=== PATIENT | male | born 1935 | race Caucasian/White ===

== ENCOUNTER → 2017-06-08 | Outpatient (CLI) | payer MEDICARE, MEDICAID ==
[~2017-06-08] MED LIST: BENA1TAB18 PO; BRIM10DR2 OP; IOPAMIDOL 61% 300/15 ML VIAL IT ONE; LIDOCAINE HCL 2% JELLY 5ML ONE; METF500T4 PO
== END | disposition home or self-care (01) ==
LOC: RAD 09:46
PROVIDERS: ATTEND Urology
DX: N35.8 Other urethral stricture (principal); N36.1 Urethral diverticulum
CPT/HCPCS: 51610; 74450; Q9967

== ENCOUNTER 2018-01-02 09:20 | Inpatient (IN) | payer MEDICARE, MEDICAID ==
[~2018-01-02] VITALS: Ht 165.1 cm; Wt 77.4 kg
[2018-01-02 08:35] VITALS: BP 154/69
[~2018-01-02 09:20] MED LIST changes: -IOPAMIDOL 61% 300/15 ML VIAL IT ONE; -LIDOCAINE HCL 2% JELLY 5ML ONE; +METF-414 PO; -METF500T4 PO
[2018-01-02] MEDS ORDERED: DIPHENHYDRAMINE 50MG/ML VIAL IV PRN (11:00)
[2018-01-02] MEDS ORDERED: ACETAMINOPHEN 325MG TABLET PO PRN (11:00)
[2018-01-02] MEDS ORDERED: MAGNESIUM/ALUMINUM HYDROXIDE/SIMETHICONE 30ML UDC PO PRN (11:00)
[2018-01-02] MEDS ORDERED: LORAZEPAM 0.5MG TABLET PO PRN (11:00)
[2018-01-02] MEDS ORDERED: CLONIDINE 0.1MG TABLET PO PRN (11:00)
[2018-01-02] MEDS ORDERED: IPRATROPIUM/ALBUTEROL 0.5-3(2.5)MG/3ML NEB INH PRN (11:00)
[2018-01-02] MEDS ORDERED: HYDROCODONE/ACETAMINOPHEN 5/325MG TABLET PO PRN (11:00)
[2018-01-02] MEDS ORDERED: ONDANSETRON HCL 4MG/2ML INJ IV PRN (11:00)
[2018-01-02 11:29] VITALS: BP 154/79
[2018-01-02 12:00] VITALS: BP 158/74
[2018-01-02] MEDS ORDERED: INFLUENZA VIRUS VACCINE(AFLURIA) 0.5ML SYR IM ONE (13:45)
[2018-01-02] MEDS: LEVOFLOXACIN 500MG TABLET PO SCH (14:00)
[2018-01-02] MEDS: SODIUM CHLORIDE 0.9% 1,000 ML IV SCH (14:11)
[2018-01-02] MEDS: PANTOPRAZOLE SODIUM 40 MG/VIAL IV SCH (14:11)
[2018-01-02] MEDS: ENOXAPARIN 40MG/0.4ML SYR SUBCUT SCH (14:12)
[2018-01-02] MEDS: AMIODARONE HCL 200 MG TABLET PO SCH ×2 (14:13→17:00)
[2018-01-02] MEDS: BENAZEPRIL 10MG TABLET PO SCH (14:13)
[2018-01-02] MEDS: DILTIAZEM HCL 60MG TABLET PO SCH ×2 (14:14→20:28)
[2018-01-02] MEDS: METRONIDAZOLE 500MG TABLET PO SCH ×2 (14:17→20:28)
[2018-01-02 16:00] VITALS: BP 166/51
[2018-01-02 16:20] LABS: INR 1.1; PROTHROMBIN TIME 11.3 sec (9.1-11.1)
[2018-01-02 16:26] LABS: ETHANOL BLOOD < 10 mg/dL
[2018-01-02] MEDS: BLOOD SUGAR DIAGNOSTIC STRIP TEST SCH ×2 (17:40→21:00)
[2018-01-02] MEDS ORDERED: DEXTROSE 50% WATER 50ML SYRINGE IV PRN (17:45)
[2018-01-02] MEDS: INSULIN LISPRO 100 UNITS/ML SUBCUT SCH (18:10)
[2018-01-02 23:38] VITALS: BP 110/65
[2018-01-03] VITALS: BP 115/65
[2018-01-03] MEDS: SODIUM CHLORIDE 0.9% 1,000 ML IV SCH ×2 (03:08→21:32)
[2018-01-03 04:00] VITALS: BP 118/65
[2018-01-03] MEDS: DILTIAZEM HCL 60MG TABLET PO SCH ×3 (05:29→21:30)
[2018-01-03 06:15] LABS: BASOPHILS % 0.8 % (0.0-2.0); EOSINOPHILS % 1.8 % (0.0-5.0); HEMATOCRIT. 35.5 % (42.0-52.0); HEMOGLOBIN. 12.3 g/dL (14.0-18.0); LYMPHOCYTES % 18.9 % (20.0-50.0); MEAN CORPUSCULAR HEMOGLOBIN 31.8 pg (28.0-32.0); MEAN CORPUSCULAR VOLUME 92.1 fL (80.0-94.0); MONOCYTES % 12.1 % (2.0-8.0); NEUTROPHILS % 66.4 % (40.0-76.0); PLATELET 508 x1000/uL (130-400); RED BLOOD CELL COUNT 3.85 mill/uL (4.7-6.1); RED CELL DISTRIBUTION WIDTH 13.5 % (11.6-14.6)
[2018-01-03 06:24] LABS: CHLORIDE 101 mEq/L (98-107)
[2018-01-03 06:35] LABS: T4 FREE 1.23 ng/dL (0.76-1.46)
[2018-01-03] MEDS: BLOOD SUGAR DIAGNOSTIC STRIP TEST SCH ×4 (07:40→21:00)
[2018-01-03 08:00] VITALS: BP 150/72
[2018-01-03] MEDS: BENAZEPRIL 10MG TABLET PO SCH (08:50)
[2018-01-03] MEDS: AMIODARONE HCL 200 MG TABLET PO SCH ×2 (08:50→17:41)
[2018-01-03] MEDS: ENOXAPARIN 40MG/0.4ML SYR SUBCUT SCH (08:50)
[2018-01-03] MEDS: METRONIDAZOLE 500MG TABLET PO SCH ×2 (08:50→21:30)
[2018-01-03] MEDS: PANTOPRAZOLE SODIUM 40 MG/VIAL IV SCH (08:51)
[2018-01-03 11:05] LABS: AMMONIA 53 uMol/L (<32)
[2018-01-03 11:36] LABS: FOLIC ACID (FOLATE) SERUM 17.3 ng/mL (>5.38)
[2018-01-03] MEDS: LEVOFLOXACIN 500MG TABLET PO SCH (11:44)
[2018-01-03 12:06] VITALS: BP 121/52
[2018-01-03 14:29] LABS: CLARITY URINE CLEAR (CLEAR); COLOR URINE YELLOW (YELLOW); KETONES URINE NEGATIVE (NEGATIVE); LEUKOCYTE ESTERASE URINE TRACE (NEGATIVE); NITRITE URINE NEGATIVE (NEGATIVE); OCCULT BLOOD URINE NEGATIVE (NEGATIVE); PROTEIN URINE NEGATIVE (NEGATIVE); SPECIFIC GRAVITY URINE 1.009 (1.005-1.030); UROBILINOGEN URINE 0.2 E.U./dL (0.2-1.0)
[2018-01-03 14:43] LABS: *AMPHETAMINES SCREEN URINE NEGATIVE (NEGATIVE); *BARBITURATES SCREEN URINE NEGATIVE (NEGATIVE); *BENZODIAZEPINES SCREEN URINE NEGATIVE (NEGATIVE); *COCAINE SCREEN URINE NEGATIVE (NEGATIVE); METHADONE URINE SCREEN NEGATIVE (NEGATIVE); OPIATES URINE SCREEN NEGATIVE (NEGATIVE)
[2018-01-03 14:44] LABS: CANNABINOID URINE SCREEN NEGATIVE (NEGATIVE); PHENCYCLIDINE URINE SCREEN NEGATIVE (NEGATIVE)
[2018-01-03 16:00] VITALS: BP 115/32
[2018-01-03] MEDS: INSULIN LISPRO 100 UNITS/ML SUBCUT SCH ×2 (17:42→21:00)
[2018-01-03 20:00] VITALS: BP 139/57
[2018-01-04] VITALS: BP 119/56
[2018-01-04 04:00] VITALS: BP 135/61
[2018-01-04] MEDS: DILTIAZEM HCL 60MG TABLET PO SCH ×3 (06:29→21:19)
[2018-01-04] MEDS: BLOOD SUGAR DIAGNOSTIC STRIP TEST SCH ×2 (07:40→12:40)
[2018-01-04 08:00] VITALS: BP 149/86
[2018-01-04] MEDS: INSULIN LISPRO 100 UNITS/ML SUBCUT SCH ×4 (08:10→21:00)
[2018-01-04 08:27] LABS: HEMATOCRIT 36.5 % (42.0-52.0); HEMOGLOBIN 12.4 g/dL (14.0-18.0); MEAN CORPUSCULAR HEMOGLOBIN 31.2 pg (28.0-32.0); MEAN CORPUSCULAR VOLUME 91.9 fL (80.0-94.0); PLATELET 492 x1000/uL (130-400); RED BLOOD CELL COUNT 3.97 mill/uL (4.7-6.1); RED CELL DISTRIBUTION WIDTH 14.1 % (11.6-14.6)
[2018-01-04] MEDS: METRONIDAZOLE 500MG TABLET PO SCH (08:48)
[2018-01-04] MEDS: FAMOTIDINE 20MG TABLET PO SCH (08:49)
[2018-01-04] MEDS: BENAZEPRIL 10MG TABLET PO SCH (08:49)
[2018-01-04] MEDS: AMIODARONE HCL 200 MG TABLET PO SCH ×2 (08:49→17:55)
[2018-01-04] MEDS: ENOXAPARIN 40MG/0.4ML SYR SUBCUT SCH (08:51)
[2018-01-04 09:18] LABS: CHLORIDE 103 mEq/L (98-107)
[2018-01-04 12:00] VITALS: BP 135/80
[2018-01-04] MEDS: LEVOFLOXACIN 500MG TABLET PO SCH (12:35)
[2018-01-04] MEDS: SODIUM CHLORIDE 0.9% 1,000 ML IV SCH (12:50)
[2018-01-04] MEDS ORDERED: IOHEXOL-300 50 ML BOTTLE IV ONE (14:24)
[2018-01-04 16:00] VITALS: BP 138/60
[2018-01-04] MEDS: LACTULOSE 20G/30ML UDC PO SCH ×2 (17:56→21:15)
[2018-01-04 20:00] VITALS: BP 133/48
[2018-01-05 04:00] VITALS: BP 166/70
[2018-01-05] MEDS: LACTULOSE 20G/30ML UDC PO SCH ×2 (05:18→14:00)
[2018-01-05] MEDS: DILTIAZEM HCL 60MG TABLET PO SCH ×2 (05:18→14:00)
[2018-01-05] MEDS: INSULIN LISPRO 100 UNITS/ML SUBCUT SCH ×2 (05:33→13:10)
[2018-01-05 07:09] LABS: BASOPHILS % 0.6 % (0.0-2.0); EOSINOPHILS % 0.9 % (0.0-5.0); HEMOGLOBIN. 12.6 g/dL (14.0-18.0); LYMPHOCYTES % 14.5 % (20.0-50.0); MEAN CORPUSCULAR HEMOGLOBIN 31.2 pg (28.0-32.0); MEAN PLATELET VOLUME 6.9 fl (7.4-10.4); MONOCYTES % 11.6 % (2.0-8.0); NEUTROPHILS % 72.4 % (40.0-76.0); PLATELET 476 x1000/uL (130-400); RED BLOOD CELL COUNT 4.02 mill/uL (4.7-6.1); RED CELL DISTRIBUTION WIDTH 13.9 % (11.6-14.6)
[2018-01-05 07:26] LABS: AMMONIA 46 uMol/L (<32)
[2018-01-05 07:55] LABS: CHLORIDE 100 mEq/L (98-107)
[2018-01-05] MEDS: FAMOTIDINE 20MG TABLET PO SCH (08:42)
[2018-01-05] MEDS: BENAZEPRIL 10MG TABLET PO SCH (08:42)
[2018-01-05] MEDS: AMIODARONE HCL 200 MG TABLET PO SCH (08:42)
[2018-01-05] MEDS: ENOXAPARIN 40MG/0.4ML SYR SUBCUT SCH (08:43)
[2018-01-05 12:00] VITALS: BP 122/63
[2018-01-05 12:21] VITALS: BP 129/75
[2018-01-28] MEDS ORDERED: lotensin (13:51)
[2018-01-28] MEDS ORDERED: AMI2 PO (13:51)
[2018-01-28] MEDS ORDERED: APIX5TAB PO (13:51)
[2018-01-28] MEDS ORDERED: DILT120T2 PO (13:51)
[2018-01-28] MEDS ORDERED: LOT10 PO (22:37)
[2018-01-30] MEDS ORDERED: ATOR20TA65 MT (21:57)
[2018-01-30] MEDS ORDERED: LEVO50TA8 MT (21:57)
[2018-01-30] MEDS ORDERED: LOSA100T14 MT (21:57)
[2018-01-30] MEDS ORDERED: AMLO-337 MT (21:57)
[2018-01-30] MEDS ORDERED: CHOL200010 MT (21:57)
[2018-01-30] MEDS ORDERED: CARV25TA47 MT (21:59)
[2018-01-30] MEDS ORDERED: CLON0.3T MT (21:59)
[2018-01-30] MEDS ORDERED: CLOP75TA33 MT (22:00)
[2018-01-30] MEDS ORDERED: SUCR500T MT (22:01)
[2018-01-30] MEDS ORDERED: ONDA4TAB50 MT (22:01)
[2018-01-30] MEDS ORDERED: HYDR-4001 MT (22:02)
[2018-01-30] MEDS ORDERED: OMEP40CA34 MT (22:02)
== END 2018-01-05 17:10 | disposition home health service (06) | DRG 64 ==
LOC: 7WST 09:20
PROVIDERS: ADMIT Family Medicine Adult Medicine; ATTEND Specialist
PROC: 0WPGX3Z Removal of Infusion Device from Peritoneal Cavity, External Approach (ICD-10-PCS; principal; 2018-01-04)
DX: I63.9 Cerebral infarction, unspecified (principal); G92 Toxic encephalopathy; K81.0 Acute cholecystitis; I47.1 Supraventricular tachycardia; I82.621 Acute embolism and thrombosis of deep veins of right upper extremity; J98.11 Atelectasis; K82.A1 Gangrene of gallbladder in cholecystitis; D50.9 Iron deficiency anemia, unspecified; E78.00 Pure hypercholesterolemia, unspecified; E78.5 Hyperlipidemia, unspecified; H40.9 Unspecified glaucoma; E11.51 Type 2 diabetes mellitus with diabetic peripheral angiopathy without gangrene; E11.42 Type 2 diabetes mellitus with diabetic polyneuropathy; I10 Essential (primary) hypertension; I25.10 Atherosclerotic heart disease of native coronary artery without angina pectoris; I27.20 Pulmonary hypertension, unspecified; I48.91 Unspecified atrial fibrillation; K57.90 Diverticulosis of intestine, part unspecified, without perforation or abscess without bleeding; Z79.84 Long term (current) use of oral hypoglycemic drugs; Z85.46 Personal history of malignant neoplasm of prostate; Z90.49 Acquired absence of other specified parts of digestive tract; Z88.0 Allergy status to penicillin
CPT/HCPCS: 36415; 70551; 71045; 74176; 80048; 80305; 82140; 82607; 82746; 82962; 83036; 84439; 84443; 84481; 84484; 85027; 92523; 92610; 93005; 93880; 97162; 97166; C9113; G0482; J1650; J7030; Q9967